=== PATIENT | female | born 1965 | race Caucasian/White ===

== ENCOUNTER 2018-11-28 09:15 | Emergency (ER) | payer BC ==
[2018-11-28 09:26] VITALS: BP 131/82; PULSE 80; TEMP 98.9; BMI 26.6
[2018-11-28] MEDS ORDERED: IBUPROFEN 600 MG TABLET (FP) PO ONE ×2 (09:30→09:34)
--- NOTE | 2018-11-28 09:30 | PDOC ---
History of Present Illness - General Chief Complaint: Injury Stated Complaint: RT FOOT PAIN Time Seen by Provider: 11/28/18 09:30 History Source: Patient Exam Limitations: No Limitations - History of Present Illness Initial Comments: 11/28/18 10:24 HPI 53 YO healthy female presenting with rt foot pain since this morning. She fell asleep, and when she woke up in the chair, her rt leg was also asleep, and as she got up rolled her right foot. No fall or trauma. No paresthesias, weakness. No skin changes or bruising noted. Able to ambulate, but limps. 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 No smoking. No alcohol. No illicit drugs. Surgical history: noncontributory Past History - Past Medical History Allergies/Adverse Reactions: Allergies Allergy/AdvReac Type Severity Reaction Status Date / Time No Known Allergies Allergy Verified 11/28/18 09:16 Home Medications: Ambulatory Orders NK [No Known Home Medication] 11/28/18 COPD: No Other medical history: CERVICAL CA - Suicide/Smoking/Psychosocial Hx Smoking History: Current every day smoker Have you smoked in the past 12 months: Yes Number of Cigarettes Smoked Daily: 20 Information on smoking cessation initiated: Yes 'Breaking Loose' booklet given: 05/07/16 Hx Alcohol Use: No Drug/Substance Use Hx: No Substance Use Type: None Review of Systems - Review of Systems Able to Perform ROS?: Yes Comments:: 11/28/18 10:24 Review of systems HEENT: no headache or dizziness. MUSCULOSKELETAL: No joint pain and swelling. No neck or back pain. +foot pain SKIN: no redness or skin changes, no discharge, no rash. No wounds. Hematologic: no easy bruising/bleeding. NEUROLOGIC: No weakness, numbness or tingling. Allergic/Immunologic: no allergies All other systems reviewed and negative, or as documented in HPI. *Physical Exam - Vital Signs Last Vital Signs Temp Pulse Resp BP Pulse Ox 98.9 F 80 20 131/82 98 11/28/18 09:15 11/28/18 09:15 11/28/18 09:15 11/28/18 09:15 11/28/18 09:15 - Physical Exam Comments: 11/28/18 10:24 General: NAD, well appearing Vascular: 2+ DP pulses symmetric and equal. Back: no midline tenderness, no stepoffs, FROM Focused MSK/Neuro Exam notable for soft compartments, Cap refill <2 sec. Proximal and distal strength 5/5, herbicide sprayer strength 5/5 - equal and symmetric. Plantar flexion and dorsiflexion 5/5. FROM with plantar and dorsiflexion and ankle eversion/inversion. Sensation grossly intact to light touch. no laxity at knee jt. 2+ DP pulses bilaterally. No proximal lower extrem tenderness up to knee. +rt lateral foot on dorsal surface tenderness, no swelling or ecchymosis, no crepitus. Able to bear weight and ambulate with some limping. Skin: color normal color, warm and well perfused. Medical Decision Making - Medical Decision Making 11/28/18 10:24 Ddx sprain, contusion, metatarsal fx. doubt proximal fracture, no tenderness. doubt ankle fx, able to ambulate to some degree with some limping. Xray rt foot normal joint space alignment, no acute fx or dislocation. + arthritic changes Discussed results with patient. SONI wrap for comfort, hard sole shoe provided as well for comfort. Rest ice and elevation. Pain control with OTC meds including motrin/tylenol as needed every 6 hours; no narcotics needed. Ortho followup provided., WBAT. Please return to ED for increased pain, weakness, numbness/tingling, fever, or redness. *DC/Admit/Observation/Transfer Diagnosis at time of Disposition: Sprain of right foot - Discharge Dispostion Disposition: HOME Condition at time of disposition: Improved Decision to Admit order: No - Referrals Referrals: Puneet Tomas MD [Staff Physician] - Jorge Velasco MD [Staff Physician] - - Patient Instructions Printed Discharge Instructions: DI for Foot Sprain Additional Instructions: you most likely have musculoskeletal strain/foot sprain your Xray showed some arthritic changes, but no fractures avoid heavy lifting or strenuous activity or heavy exercise. weight bear as tolerated. use the soni wrapping for compression or the hard sole shoe. May take ibuprofen/tylenol as needed, over the counter for mild to moderate pain. continue with range of motion exercises. RICE rest ice elevate the affected extremity Rest, Ice (20 minutes at a time, 3 times a day), Compression (SONI wrap or splint ), Elevation (above the heart). Follow up with your vice president mission integration in 1 week if symptoms persist, or with orthopedics if needed. Follow up with primary doctor/specialist services provided as well. orthopedics referrals given. This should heal over the next 3-5 days. - Post Discharge Activity Forms/Work/School Notes: Back to Work
== END 2018-11-28 10:24 | disposition home or self-care (01) ==
LOC: FER 09:15
DX: S93.601A Unspecified sprain of right foot, initial encounter (principal); X58.XXXA Exposure to other specified factors, initial encounter; Y93.9 Activity, unspecified; Y92.89 Other specified places as the place of occurrence of the external cause; F17.210 Nicotine dependence, cigarettes, uncomplicated; Z85.41 Personal history of malignant neoplasm of cervix uteri
CPT/HCPCS: 73630-TC-RT-FY; 99282-25

== ENCOUNTER 2019-05-10 12:15 | Emergency (ER) | payer BC ==
[2019-05-10 12:36] VITALS: BP 112/83; PULSE 84; TEMP 98.3; BMI 26.9
--- NOTE | 2019-05-10 12:50 | PDOC ---
History of Present Illness - General Chief Complaint: Redness To Affected Area Stated Complaint: RT LEG BEE STING Time Seen by Provider: 05/10/19 12:22 History Source: Patient Exam Limitations: No Limitations - History of Present Illness Initial Comments: 05/10/19 12:50 54y F no pmhx presents with bee sting. She was stung on thursday, over the next 2 days, there area is a bit more swollen, but is not particularly painful or itching. she was ocncerned as it seemed to be gtting worse so presented for evaluation. She dnees any difficulty breathouht, n/v, abd pain, wheezing. ROS: see above physical exam: general no acut edistress HEENT: normal voice skin: +mild induration and erythema without warmth on the medial/posterior aspect of the R knee. no stinger present. no fluctuance. suspect normal reaction to sting with some mild inflammation no warmth to suggest suprainfeciton NSAIDS/benadrylice pack for sx relieve return precautions wer discussed including signs of infection. Past History - Past Medical History Allergies/Adverse Reactions: Allergies Allergy/AdvReac Type Severity Reaction Status Date / Time No Known Allergies Allergy Verified 11/28/18 09:16 Home Medications: Ambulatory Orders NK [No Known Home Medication] 11/28/18 COPD: No - Suicide/Smoking/Psychosocial Hx Smoking History: Never smoked Have you smoked in the past 12 months: No Number of Cigarettes Smoked Daily: 20 Information on smoking cessation initiated: No 'Breaking Loose' booklet given: 05/07/16 Hx Alcohol Use: No Drug/Substance Use Hx: No Substance Use Type: None *Physical Exam - Vital Signs Last Vital Signs Temp Pulse Resp BP Pulse Ox 98.3 F 84 20 112/83 98 05/10/19 12:16 05/10/19 12:16 05/10/19 12:16 05/10/19 12:16 05/10/19 12:16 *DC/Admit/Observation/Transfer Diagnosis at time of Disposition: Bee sting reaction Qualifiers: Encounter type: initial encounter Injury intent: accidental or unintentional Qualified Code(s): T63.441A - Toxic effect of venom of bees, accidental ( unintentional), initial encounter - Discharge Dispostion Disposition: HOME Condition at time of disposition: Improved Decision to Admit order: No - Referrals - Patient Instructions Printed Discharge Instructions: DI for Insect Bites and Stings Additional Instructions: Take benadryl for any itching. You can put ice onto the area to reduce the swelling. Take any motrin if you have pain. The symptoms should improve over the next few days. Print Language: PUERTO RICAN - Post Discharge Activity
== END 2019-05-10 13:02 | disposition home or self-care (01) ==
LOC: FER 12:15
DX: T63.441A Toxic effect of venom of bees, accidental (unintentional), initial encounter (principal); Y92.9 Unspecified place or not applicable
CPT/HCPCS: 99281-25

== ENCOUNTER 2019-07-04 09:19 | Day surgery (SDC) | payer BC ==
[2019-07-01 16:58] VITALS: BMI 26.5
[2019-07-04 11:17] VITALS: TEMP 97.9
[2019-07-04 11:44] VITALS: PULSE 66
[2019-07-04 12:48] VITALS: BP 114/74
--- NOTE | 2019-07-06 13:09 | PATH ---
Surgical Pathology Report Patient Name: COREY BRUNER [facility]. Rec. #: [id number] /Age/Gender: 1965 (Age: 54) / F Account: [id number] Location: [facility]-ENDOSCOPY Taken: 07/04/2019 Received: 07/04/2019 Reported: 07/06/2019 Physicians: Scotty Reynolds M.D. Specimen(s) Received A: DUODENUM, SECOND PORTION AND DUODENAL BULB B: ANTRUM C: DISTAL ESOPHAGUS D: TRANSVERSE COLON POLYP E: PROXIMAL TRANSVERSE COLON POLYP Clinical History History of colon polyp, occult GI bleed, GERD Postoperative diagnosis: Hiatal hernia, GERD, colon polyps Final Diagnosis A. DUODENUM, SECOND PORTION AND DUODENAL BULB, BIOPSY: DUODENAL MUCOSA WITH MILD ACUTE AND CHRONIC DUODENITIS. B. STOMACH, ANTRUM, BIOPSY: GASTRIC ANTRAL MUCOSA WITH MILD CHRONIC GASTRITIS. IMMUNOHISTOCHEMICAL STAIN FOR H. PYLORI IS NEGATIVE. C. 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 NO DYSPLASIA IDENTIFIED. D. DISTAL TRANSVERSE COLON, POLYP, BIOPSY: TUBULAR ADENOMA. E. PROXIMAL TRANSVERSE COLON, POLYP, BIOPSY: TUBULAR ADENOMA. Electronically Signed Shirley Ladd M.D. Gross Description A. Received in formalin, labeled "biopsy second portion of duodenum and duodenal bulb" are 4 pastrana, irregular portions of soft tissue ranging from 0.1-0.5 cm. in greatest dimension. The specimens are submitted in toto in one cassette. B. Received in formalin, labeled "biopsy antrum" are 2 pastrana, irregular portions of soft tissue measuring 0.3 and 0.4 cm. in greatest dimension. The specimens are submitted in toto in one cassette. C. Received in formalin, labeled "biopsy distal esophagus" are 4 pastrana, irregular portions of soft tissue ranging from 0.3-0.5 cm. in greatest dimension. The specimens are submitted in toto in one cassette. D. Received in formalin, labeled "biopsy distal transverse colon polyp" are 2 pastrana, irregular portions of soft tissue measuring 0.3 and 0.4 cm. in greatest dimension. The specimens are submitted in toto in one cassette. E. Received in formalin, labeled "biopsy proximal transverse colon" are 3 pastrana, irregular portions of soft tissue ranging from 0.1-0.4 cm. in greatest dimension. The specimens are submitted in toto in one cassette. 07/04/201907/04/2019
== END 2019-07-04 12:00 | disposition home or self-care (01) ==
LOC: JASU-ENDO 09:19
PROVIDERS: ATTEND Internal Medicine Gastroenterology
PROC: 0DBL8ZX Excision of Transverse Colon, Via Natural or Artificial Opening Endoscopic, Diagnostic (ICD-10-PCS; principal; 2019-07-04 10:15)
DX: Z12.11 Encounter for screening for malignant neoplasm of colon (principal); Z86.010 Personal history of colon polyps; D12.3 Benign neoplasm of transverse colon; K64.8 Other hemorrhoids
CPT/HCPCS: 88305-TC; 88342-TC

== ENCOUNTER 2020-09-09 06:49 | Emergency (ER) | payer BC ==
[2020-09-09 07:02] VITALS: BP 136/95; PULSE 86; TEMP 98.1; BMI 28.1
== END 2020-09-09 07:35 | disposition home or self-care (01) ==
LOC: FER 06:49
DX: H10.31 Unspecified acute conjunctivitis, right eye (principal)
CPT/HCPCS: 99282-25

== ENCOUNTER 2021-08-06 06:11 | Day surgery (SDC) | payer BC ==
[2021-08-02 13:15] VITALS: BMI 28.1
[2021-08-07 11:01] LABS: HEMATOCRIT 35.4 % (32.4-45.2); HEMOGLOBIN 12.2 GM/dL (10.7-15.3); MCH 33.2 pg (25.7-33.7); MCHC 34.5 g/dl (32.0-36.0); MEAN CELL VOLUME 96.1 fl (80-96); MEAN PLT VOLUME 7.4 fl (7.5-11.1); PLATELET COUNT 245 10^3/uL (134-434); RBC 3.68 M/mm3 (3.60-5.2); RDW 12.7 % (11.6-15.6); WHITE BLOOD COUNT 12.6 K/mm3 (4.0-10.0)
[2021-08-07 14:07] VITALS: BP 107/64; PULSE 81; TEMP 98.4
== END 2021-08-07 16:26 | disposition home health service (06) ==
LOC: FASUSAT 06:11 → EDSTATUS 13:00 → FM/S 14:15 → FASUSAT 08-07 16:26
PROVIDERS: ATTEND Orthopaedic Surgery
PROC: 0SRB0J9 Replacement of Left Hip Joint with Synthetic Substitute, Cemented, Open Approach (ICD-10-PCS; principal; 2021-08-06)
PROC: 8E0YXBZ Computer Assisted Procedure of Lower Extremity (ICD-10-PCS; 2021-08-06)
PROC: 8E0W0CZ Robotic Assisted Procedure of Trunk Region, Open Approach (ICD-10-PCS; 2021-08-06)
DX: M16.12 Unilateral primary osteoarthritis, left hip (principal)
CPT/HCPCS: 20985; 27130; C1776; S2900; 36415; 73502-TC-LT-FY; 85027; 88305-TC; 88311-TC; 94760; 97010-GP; 97116-GP; 97163-GP; J0131

== ENCOUNTER 2025-02-10 05:50 | Day surgery (SDC) | payer BC ==
[2025-01-31 15:37] VITALS: BMI 26.9
[2025-02-10 08:50] VITALS: TEMP 98.3
[2025-02-10 09:24] VITALS: PULSE 83
[2025-02-10 09:25] VITALS: BP 102/68; RESP 16
== END 2025-02-10 09:31 | disposition home or self-care (01) ==
LOC: JASU-ENDO 05:50
PROVIDERS: ATTEND Internal Medicine Gastroenterology
PROC: 0DB48ZX Excision of Esophagogastric Junction, Via Natural or Artificial Opening Endoscopic, Diagnostic (ICD-10-PCS; 2025-02-10)
PROC: 0DB68ZX Excision of Stomach, Via Natural or Artificial Opening Endoscopic, Diagnostic (ICD-10-PCS; 2025-02-10)
PROC: 0DJD8ZZ Inspection of Lower Intestinal Tract, Via Natural or Artificial Opening Endoscopic (ICD-10-PCS; principal; 2025-02-10 08:00)
DX: Z12.11 Encounter for screening for malignant neoplasm of colon (principal); K22.70 Barrett's esophagus without dysplasia; K44.9 Diaphragmatic hernia without obstruction or gangrene; K29.50 Unspecified chronic gastritis without bleeding; K21.00 Gastro-esophageal reflux disease with esophagitis, without bleeding; K31.A0 Gastric intestinal metaplasia, unspecified; Z86.0100 Personal history of colon polyps, unspecified
CPT/HCPCS: 88305-TC; 88342-TC